=== PATIENT | female | born 1935 | race Caucasian/White ===

== ENCOUNTER 2023-05-01 13:01 | Emergency (ER) | payer OTHER, SELFPAY ==
[2023-05-01 13:04] VITALS: BP 220/138; PULSE 100; O2SAT 98
[2023-05-01 13:19] VITALS: BP 245/108; PULSE 74; RESP 18; TEMP 36.6; O2SAT 96; BMI 20.4
--- NOTE | 2023-05-01 14:00 | MHC.EDTECH ---
T/w ambulated with Pt to and from bathroom. Pt walked with steady gait. Urine sample obtained and Pt changed into hospital gown.
[2023-05-01 14:12] LABS: MANUAL DIFF FLAG NO
[2023-05-01 14:15] LABS: Appearance Urine Clear; Color Urine Yellow; Glucose Urine UA Negative (Negative); Leukocyte Esterase Urine Negative (Negative); Nitrite Urine Negative (Negative); Specific Gravity - Urine <= 1.005 (1.005-1.025); Urine Blood Negative (Negative); Urine Ketones Negative (Negative); Urine Protein Negative (Neg-Trace)
[2023-05-01 14:18] LABS: Bacteria Urine None Seen (None Seen); Hyaline Casts Urine 0-2 /LPF (0-2); RBC Urine 0-2 /HPF (0-2); Squamous Epithelial Cell Urine 0-2 /HPF (0-2); WBC Urine 0-5 /HPF (0-5)
[2023-05-01 14:21] LABS: Basophils Percent Auto 0.5 % (0-2); Eosinophils Absolute Auto 0.1 X10*3/uL (0.0-0.4); Eosinophils Percent Auto 1.2 % (0-4); Hematocrit 43.3 % (37.0-47.0); Hemoglobin 14.2 g/dl (12.0-16.0); Imm Gran Abs Auto 0.01 X10*3/uL (0.00-0.03); Imm Gran Pct Auto 0.2 % (0.0-0.4); Lymphocytes Absolute Auto 1.6 X10*3/uL (1.2-4.9); Lymphocytes Percent Auto 26.5 % (20-40); Mean Corpuscular HGB Conc 32.8 g/dl (31.0-35.0); Mean Corpuscular Hemoglobin 29.6 pg (27.0-33.0); Mean Corpuscular Volume 90.4 fL (80.0-98.0); Mean Platelet Volume 10.1 fL (9.4-12.3); Monocytes Absolute Auto 0.5 X10*3/uL (0.1-1.2); Monocytes Percent Auto 8.3 % (2-11); Neutrophils Absolute Auto 3.8 x10*3/uL (2.0-8.3); Neutrophils Percent Auto 63.3 % (45-73); Platelet Count 210 X10*3/uL (160-400); Red Blood Count 4.79 X10*6/uL (4.20-5.50); Red Cell Distribution Width 12.8 % (11.0-16.0)
[2023-05-01 14:40] VITALS: BP 211/100; PULSE 63; RESP 16; O2SAT 96
[2023-05-01 14:58] LABS: Alanine Aminotransferase 14 U/L (0-31); Albumin Level 4.1 g/dL (3.5-5.0); Alkaline Phosphatase 137 U/L (39-117); Anion Gap 9 (12-20); Aspartate Amino Transferase 16 U/L (5-31); Bilirubin Total 0.4 mg/dL (0.0-1.0); Blood Urea Nitrogen 17 mg/dL (9-16); Calcium 9.2 mg/dL (8.4-10.2); Carbon Dioxide 31 mmol/L (22-29); Chloride 106 mmol/L (96-108); Creatinine Clr Calc Pharmacy 46.5; Estimated Glomerular Filt Rate > 60; Glucose Random 92 mg/dL (60-115); Potassium 3.6 mmol/L (3.3-5.1); Sodium 142 mmol/L (135-145); Total Protein 6.6 g/dL (6.5-8.0)
--- NOTE | 2023-05-01 15:23 | PC.NURSE ---
spoke with son angela - [phone] who states his mother has dementia, alzheimers. states his son took her to the store today where she had an episode and told the store group manager she did not feel safe with who she was there with. the accounting file clerk then called for her to come to hospital prior to his arrival to help with situation. states she has not been taking her medications and that she woke up this morning seeming off today. he also says that he is on his way in to the hospital at this time.
--- NOTE | 2023-05-01 16:00 | ED_ITS ---
HPI - General Adult General Chief complaint: General Medical Stated complaint: DEMENTIA, SCARED PER EMS Time Seen by Provider: 05/01/23 15:14 Source: patient and family (Son) Mode of arrival: EMS Limitations: other (Alzheimer's dementia) History of Present Illness HPI narrative: 88-year-old female with history of Alzheimer dementia who was brought to emergency department for evaluation agitation while she was at a store. The patient was brought to his store by her nephew. When she got to the store she became very agitated, she told the store employees that she did not know the person that she was with and she was very scared and concerned. The police called an ambulance and the patient was then brought to the emergency department. Since being in the emergency department the patient has been calm and cooperative but she lacks insight as to why she is here. Patient's son states that this is happened to the patient before and secondary to her Alzheimer's dementia. The patient is supposed to take Ativan but has not been taking this medication. Related Data Previous Rx's Medication Instructions Recorded amlodipine 5 mg tablet 5 mg PO DAILY #30 tabs 05/01/23 lorazepam 0.5 mg tablet (Ativan) 0.5 mg PO BEDTIME PRN anxiety #10 05/01/23 tabs Allergies Allergy/AdvReac Type Severity Reaction Status Date / Time No Known Allergies Allergy Verified 05/01/23 13:58 Review of Systems 2 Review of Systems: Yes Unobtainable due to mental condition (Dementia) [facility] Past Medical History [facility] Narrative: Social history: She lives at home with her son. Onset Date is defined in the Problem List Problems that require an onset date and time if occurred within 24 hrs of arrival to the ED Aortic Dissection and Rupture; Neurologic impairment; Cardiopulmonary Arrest; Endotracheal Intubation; Insertion or Replacement of Mechanical Circulatory Assist Device Social History Social History Advance Directives: Yes Advance Directives on File: No Physical Exam ED Vital Signs: Vital Signs - 24 hr 05/01/23 13:19 05/01/23 14:40 Temperature 97.8 F Pulse Rate 74 63 Respiratory Rate 18 16 Blood Pressure 245/108 H 211/100 H Pulse Oximetry 96 96 Oxygen Delivery Method Room Air Room Air BMI result Body Mass Index 20.4 Patient's vital signs did reveal elevated blood pressures of 245/108 and 211/100. Vital signs otherwise unremarkable Exam General: Awake, alert in no distress. Oriented to person, lacks insight as to why she is here Head: Normocephalic, atraumatic EENT: PERRL, Lids normal, sclera normal, conjunctiva normal, nose normal , ears normal, throat without erythema or exudates Neck: Supple, no adenopathy, no trachea midline or C-spine tenderness Lung: breath sounds symmetric, no wheezing, rales or rhonchi Chest: symmetric movement, nontender Heart: regular rate and rhythm, normal S1, S2 no murmurs or rubs Abdomen: soft, non-tender, nondistended, normal bowel sounds Back: no vertebral tenderness, no CVAT Extremities: no deformities, moves all extremities symmetrically Neuro: Awake, alert, oriented to person, normal speech, cranial nerves intact, moves all extremities symmetrically Psych: Pleasant, cooperative Medications Administered Discontinued Medications Generic Name Dose Route Start Last Admin Trade Name Freq PRN Reason Stop Dose Admin Amlodipine Besylate 5 mg 05/01/23 16:15 05/01/23 16:55 Amlodipine Besylate 5 Mg Tablet PO 05/01/23 16:16 5 mg ONCE ONE Administration Protocol Medical Decision Making Medical Decision Making MDM Narrative: 88-year-old female with a history of Alzheimer dementia who presented to emergency department for agitation while she was at a store with her nephew. He store employee were concerned about the patient's agitation called an ambulance the patient was brought to the emergency department. Since arrival in the emergency department the patient has been calm and cooperative. Patient's son came to emergency department states the patient is at her usual baseline for her dementia and then she has had similar episodes in the past secondary to her dementia Following evaluation was ordered: CBC, CMP, urinalysis Patient was treated with amlodipine 5 mg orally for hypertension My interpretation patient's laboratory evaluation is as follows: CBC was normal. CMP revealed an elevated BUN of 17, elevated bicarb of 31. Alk-phos elevated 136. Urinalysis and microscopic were unremarkable Patient's presentation is consistent is consistent with agitation caused by her Alzheimer dementia. Patient does have an elevated blood pressure she was given amlodipine 5 mg orally and started on amlodipine 5 mg daily. She was also given prescription for Ativan 0.5 mg 1 pill at night as needed for agitation Patient was discharged home in the care of her son Differential Diagnosis Differential Diagnoses: The differential diagnosis associated with the presentation includes Differential diagnosis includes was not limited to agitation secondary to Alzheimer dementia, urinary tract infection, anemia, electrolyte abnormality Admission/Observation Consideration of admission/observation: Escalation of care including admission/observation considered Lab Data MDM Lab Attestation statement: I reviewed the patient's lab results. 05/01/23 14:05 05/01/23 14:33 Labs: Lab Results 05/01/23 05/01/23 Range/Units 14:05 14:33 WBC 6.0 (4.8-10.8) X10*3/uL RBC 4.79 (4.20-5.50) X10*6/uL Hgb 14.2 (12.0-16.0) g/dl Hct 43.3 (37.0-47.0) % MCV 90.4 (80.0-98.0) fL MCH 29.6 (27.0-33.0) pg MCHC 32.8 (31.0-35.0) g/dl RDW 12.8 (11.0-16.0) % Plt Count 210 (160-400) X10*3/uL MPV 10.1 (9.4-12.3) fL Immature Gran % (Auto) 0.2 (0.0-0.4) % Neut % (Auto) 63.3 (45-73) % Lymph % (Auto) 26.5 (20-40) % Blount % (Auto) 8.3 (2-11) % Eos % (Auto) 1.2 (0-4) % Baso % (Auto) 0.5 (0-2) % Lymph # (Auto) 1.6 (1.2-4.9) X10*3/uL Blount # (Auto) 0.5 (0.1-1.2) X10*3/uL Eos # (Auto) 0.1 (0.0-0.4) X10*3/uL Baso # (Auto) 0.0 (0.0-0.2) X10*3/uL Abs Immat Gran (auto) 0.01 (0.00-0.03) X10*3/uL Absolute Neuts (auto) 3.8 (2.0-8.3) x10*3/uL Absolute Nucleated RBC 0.000 (0.0-0.012) X10*3/uL Nucleated RBC % (auto) 0.0 (0.0-0.2) /100WBC Sodium 142 (135-145) mmol/L Potassium 3.6 (3.3-5.1) mmol/L Chloride 106 (96-108) mmol/L Carbon Dioxide 31 H (22-29) mmol/L Anion Gap 9 L (12-20) BUN 17 H (9-16) mg/dL Creatinine 0.77 (0.5-1.4) mg/dL Estim Creat Clear Calc 46.5 Estimated GFR > 60 Random Glucose 92 (60-115) mg/dL Calcium 9.2 (8.4-10.2) mg/dL Total Bilirubin 0.4 (0.0-1.0) mg/dL AST 16 (5-31) U/L ALT 14 (0-31) U/L Alkaline Phosphatase 137 H (39-117) U/L Total Protein 6.6 (6.5-8.0) g/dL Albumin 4.1 (3.5-5.0) g/dL Urine Color Yellow Urine Appearance Clear Urine pH 7.0 (5.0-9.0) Ur Specific Bay[place] <= 1.005 (1.005-1.025) Urine Protein Negative (Neg-Trace) mg/dL Urine Glucose (UA) Negative (Negative) mg/dL Urine Ketones Negative (Negative) mg/dL Urine Blood Negative (Negative) Urine Nitrite Negative (Negative) Ur Leukocyte Esterase Negative (Negative) Urine RBC 0-2 (0-2) /HPF Urine WBC 0-5 (0-5) /HPF Ur Squamous Epith Cells 0-2 (0-2) /HPF Urine Bacteria None Seen (None Seen) Hyaline Casts 0-2 (0-2) /LPF Independent Historian Clinical information obtained from an independent historian. History obtained from or confirmed by: Other (Patient's) Prescription Management I considered prescription management with: Other Chronic Conditions Patient?s care impacted by: Other (Alzheimer dementia) Discharge Plan Discharge Clinical Impression: Anxiety Hypertension Qualifiers: Hypertension type: unspecified Qualified Code(s): I10 - Essential (primary) hypertension Dementia Qualifiers: Dementia type: Alzheimer's Patient Disposition: Home, Self-Care Additional Instructions: Your blood work was unremarkable. Your blood pressure was elevated 245/108. I am starting you on a blood pressure medication called amlodipine 5 mg, 1 pill once a day. I am giving you 1 month's worth of this medication so it is important that you follow-up with your doctor in 3 weeks for recheck of your blood pressure and to get a refill of this medication Take Ativan 1 mg pills, 0.6 mg at night as needed for anxiety. ?This medication will make you sleepy, do not drive or work while taking this medication. ?This medication can be addicting, if your concerned about addiction you can ask the pharmacist for less medications or do not get the prescription filled. Follow-up with your doctor in 2 days. Please return to the emergency department if your symptoms get worse or if you develop any symptoms that are concerning to you. Prescriptions: New amlodipine 5 mg tablet 5 mg PO DAILY Qty: 30 0RF lorazepam [Ativan] 0.5 mg tablet 0.5 mg PO BEDTIME PRN (Reason: anxiety) Qty: 10 0RF Rx Instructions: patient may ask for partial fill Interventions: ED Discharge Assessment Last Done: 05/01/23 16:55 Discharge Date/Time: 05/01/23 16:55
[2023-05-01] MEDS: amLODIPine Besylate 5 MG TABLET PO (16:55)
== END 2023-05-01 16:55 | disposition home or self-care (01) ==
PROVIDERS: Emergency Provider Emergency Medicine Emergency Medical Services
DX: G30.9 Alzheimer's disease, unspecified (principal); F02.84 Dementia in other diseases classified elsewhere, unspecified severity, with anxiety; F41.1 Generalized anxiety disorder; F43.0 Acute stress reaction; I10 Essential (primary) hypertension; Z79.899 Other long term (current) drug therapy
CPT/HCPCS: 36415; 80053; 81001; 85025; 99283; 99284